=== PATIENT | female | born 1945 | race Hispanic/Latino ===

== ENCOUNTER 2017-06-20 09:02 | Day surgery (SDC) | payer MEDICARE ==
--- NOTE | 2017-06-18 07:56 | HP ---
HISTORY OF PRESENT ILLNESS: Kianna Mejía is a 71-year-old female recently moved to this area to [place], [place]. She has been having symptomatic gallbladder problems. She had a previous ultrasound r evealing gallstones, [facility] on 05/27/2017, bile duct was normal caliber. There was some janeth dence of steatosis, otherwise ultrasound was normal. The patient being recently diagnosed with predi abetic, being treated with diet alteration and exercise, and avoiding medications today. ALLERGIES: None. TOBACCO: None. ALCOHOL: None. MEDICATIONS: Losartan potassium 25 mg daily, pravastatin 20 mg a day. PAST SURGICAL HISTORY: 1. Two lumbar surgeries as a child and teenager, overall doing well with some chronic back pain. 2. Has had a previous colonoscopy. 3. Appendectomy in the past. 4. in the past. PAST MEDICAL HISTORY: Prediabetes, hypertension, chronic back pain, mild. REVIEW OF SYSTEMS: Ten-point noncontributory. No history of cardiac problems. PHYSICAL EXAMINATION: VITAL SIGNS: Weight 69.4, height 71 inches, BMI of 23, blood pressure 144/59, pulse 71, temperature 98.1 degrees. HEAD, EYES, EARS, NOSE AND THROAT: Unremarkable. Sclerae nonicteric. LUNGS: Clear to auscultation. CARDIAC: Regular rate and rhythm without murmur or gallop. ABDOMEN: Soft, nontender except for minimal tenderness in right upper quadrant, mild guarding. EXTREMITIES: Unremarkable. No edema. NEUROLOGIC: No focal deficits. ASSESSMENT AND PLAN: 1. Cholecystitis, cholelithiasis. Recommend laparoscopic video cholecystectomy. Risks of infection , bleeding, visceral and biliary injury, possibly open procedure discussed. Questions answered. We will plan laparoscopic cholecystectomy later this week. 2. Prediabetes. Diet alteration and exercise. 3. Hypertension.
[2017-06-19 14:04] VITALS: BMI 31.7
[2017-06-20] MEDS ORDERED: Ketorolac Tromethamine 30 MG/ML VIAL ONE (09:42)
[2017-06-20] MEDS ORDERED: CEFAZOLIN/Water 2 GM/20 ML SYRINGE ONE (09:42)
[2017-06-20] MEDS ORDERED: Fentanyl 100 MCG/2 ML VIAL ONE ×2 (10:08→12:39)
[2017-06-20] MEDS ORDERED: Bupivacaine/Epinephrine 0.25% 30 ML VIAL ONE (10:09)
[2017-06-20 10:11] LABS: #Basophils 0.1 thou/uL (0.0-0.2); #Eosinphils 0.4 thou/uL (0.0-0.7); #Monocytes 0.6 thou/uL (0.11-0.59); #Neutrophils 3.9 thou/uL (1.40-6.50); %Basophils 0.6 % (0.0-1.0); %Eosinophils 4.3 % (0.0-10.0); %Lymphocytes 45.2 % (21.0-51.0); %Monocytes 6.3 % (0.0-10.0); Hematocrit 46.8 % (36.0-47.0); Mean Platelet Volume 9.8 fL (7.4-10.4); Red Blood Cell (RBC) Count 4.81 mill/uL (4.20-5.40); White Blood Cell (WBC) Count 8.9 thou/uL (4.8-10.8)
[2017-06-20] MEDS ORDERED: Scopolamine 1.5 mg/72 hour Patch ONE (10:30)
[2017-06-20 10:33] LABS: ALT (SGPT) 44 U/L (8-55); AST (SGOT) 41 U/L (5-34); Alkaline Phosphatase 90 U/L (40-150); Anion Gap 12 mmol/L (10-20); BUN (Urea Nitrogen) 12 mg/dL (9.8-20.1); Bilirubin, Total 0.9 mg/dL (0.2-1.2); Calc. Creatinine Clearance 85 mL/min (70-130); Calcium 9.6 mg/dL (7.8-10.44); Carbon Dioxide 25 mmol/L (23-31); Chloride 106 mmol/L (98-107); Estimated GFR-MDRD 79; Globulin 3.8 g/dL (2.4-3.5)
[2017-06-20] MEDS ORDERED: Sodium Chloride For Inhalation 0.9% 3 ML NEB ONE (11:47)
[2017-06-20] MEDS ORDERED: Albuterol Sulfate 1.25 MG/3 ML NEB ONE (11:47)
--- NOTE | 2017-06-20 12:16 | OP ---
DATE OF PROCEDURE: 06/20/2017 PREOPERATIVE DIAGNOSES: Chronic cholecystitis, cholelithiasis. POSTOPERATIVE DIAGNOSES: Chronic cholecystitis, cholelithiasis with abnormal firm appearing liver, p ossibly early cirrhosis. PROCEDURES: Laparoscopic video cholecystectomy. Laparoscopically guided core liver biopsies, right lobe. SURGEON: Rlaph Skinner M.D. ANESTHESIA: General. Local 0.25% Marcaine with epinephrine, 30 mL, mixed with Xylocaine, 10 mL. PROCEDURE IN DETAIL: The patient was taken to the operating room where under general anesthesia, abd omen was prepared with ChloraPrep and draped in routine fashion. Local anesthetic infiltrated into s kin and subcutaneous tissue about each port site. Supraumbilical incision made and pneumoperitoneum to 15 mmHg obtained with Veress needle, replacing it with a 5 port and laparoscope inserted. Right s ubxiphoid incision made and 11 port placed. Right subcostal incision made midclavicular anterior axi llary lines and 5 mm ports placed. Liver appeared to be firm and perhaps early cirrhotic and slightl y nodular. Photographs were taken and copies given to the patient. The gallbladder fundus was grasp ed and reflected cephalad. Infundibulum grasped and reflected laterally. Cystic artery and duct dis sected free for critical view, and cystic artery and duct doubly clipped proximally, divided, as gall bladder dissected free from the liver bed obtaining good hemostasis prior to division of final perito earle attachments. Gallbladder and contents removed and submitted to Pathology. Good hemostasis ensu red with the cautery. Core liver biopsies obtained from the right lobe of the liver percutaneously a ccessed. Two good liver cores obtained. Hemostasis gained with the cautery. These were submitted t o Pathology. Good hemostasis noted. Irrigant and pneumoperitoneum evacuated. All instruments remov ed and all skin incisions approximated with interrupted subdermal 4-0 Monocryl and DermaGlue applied.
--- NOTE | 2017-06-20 12:24 | EKG ---
Test Reason : PREOP Blood Pressure : / mmHG Vent. Rate : 059 BPM Atrial Rate : 059 BPM P-R Int : 166 ms QRS Dur : 078 ms QT Int : 438 ms P-R-T Axes : 051 006 060 degrees QTc Int : 433 ms Sinus bradycardia Nonspecific T wave abnormality Abnormal ECG No previous ECGs available Confirmed by JULIO CESAR ALCANTAR ([id number]) on 06/20/2017 12:24:43 PM Referred By: LIAN Confirmed By:JULIO CESAR ALCANTAR
[2017-06-20] MEDS ORDERED: Midazolam HCl 2 mg/2 ml Vial ONE (12:25)
[2017-06-20 12:31] LABS: ALT (SGPT) 44 U/L (8-55); AST (SGOT) 41 U/L (5-34); Alkaline Phosphatase 89 U/L (40-150); Bilirubin, Direct 0.4 mg/dL (0.1-0.3); Bilirubin, Total 0.9 mg/dL (0.2-1.2); Protein, Total 8.1 g/dL (6.0-8.3)
[2017-06-20] MEDS ORDERED: HYDROcodone/Acetaminophen 5/325 mg Tablet ONE (13:32)
[2017-06-20] MEDS ORDERED: Glycopyrrolate 0.2 MG/ML 5 ML SYRINGE ONE (15:54)
[2017-06-20] MEDS ORDERED: Ondansetron HCl/PF 4 MG/2 ML Vial ONE (15:54)
[2017-06-20] MEDS ORDERED: Dexamethasone 20 MG/5 ML VIAL ONE (15:54)
[2017-06-20] MEDS ORDERED: Propofol 200 MG/20 ML VIAL ONE (15:54)
[2017-06-20] MEDS ORDERED: Lidocaine 1% PF 5 ML VIAL ONE (15:54)
== END 2017-06-20 14:45 | disposition home or self-care (01) ==
LOC: SDC 09:02
PROVIDERS: ATTEND Specialist
PROC: 0FT44ZZ Resection of Gallbladder, Percutaneous Endoscopic Approach (ICD-10-PCS; principal; 2017-06-20)
PROC: 0FB14ZX Excision of Right Lobe Liver, Percutaneous Endoscopic Approach, Diagnostic (ICD-10-PCS; 2017-06-20)
DX: K80.10 Calculus of gallbladder with chronic cholecystitis without obstruction (principal); K75.81 Nonalcoholic steatohepatitis (NASH); R73.03 Prediabetes; I10 Essential (primary) hypertension; Z90.49 Acquired absence of other specified parts of digestive tract; Z98.890 Other specified postprocedural states
CPT/HCPCS: 36415; 80053; 85025; 88304; 88307; 88313; 93005; 93010; 96374; J0131; J1100; J1885; J2001; J2250; J2405; J2704; J3010

== ENCOUNTER 2019-06-01 15:01 | Outpatient (CLI) | payer MEDICARE ==
--- NOTE | 2019-06-01 17:07 | BD ---
Exam: DEXA Bone Density 05/31/19 HISTORY: Screening study, postmenopausal female. Lumbar Spine: BMD (g/cm2) T-SCORE Z-SCORE L1 1.112 1.1 3.2 L2 1.098 0.6 2.9 L3 0.966 -1.1 1.3 L4 0.982 -0.7 1.8 L1-L4 1.041 -0.1 2.3 Femoral Neck: 0.694 -1.4 0.5 Total Femur: 0.885 -0.5 1.1 Impression: Lumbar spine: WHO classification: Normal. Fracture risk not increased. Note: There is hypertrophic changes which may falsely increase the patient's bone mineral density and subsequently falsely decrease patient's fracture risk. Femoral neck: WHO classification: Osteopenia. Ten year fracture risk for major osteoporotic fracture is 14%. Hip fracture 2.5%. POS: OFF
--- NOTE | 2019-06-18 16:35 | MMO ---
Bilateral MAMMO Bilat Screen [facility]. CLINICAL HISTORY: Patient is 73 years old and is seen for screening. The patient has no family history of breast cancer. The patient has no personal history of cancer. VIEWS: The views performed were: bilateral craniocaudal with tomosynthesis and bilateral mediolateral oblique with tomosynthesis. FILMS COMPARED: The present examination has been compared to a prior imaging study performed at [facility] on 12/24/2016. This study has been interpreted with the assistance of computer-aided detection. MAMMOGRAM FINDINGS: There are scattered fibroglandular densities. There are stable benign appearing calcifications seen in both breasts. There are no suspicious masses, suspicious calcifications, or new areas of architectural distortion. IMPRESSION: THERE IS NO MAMMOGRAPHIC EVIDENCE OF MALIGNANCY. A ROUTINE FOLLOW-UP MAMMOGRAM IN 1 YEAR IS RECOMMENDED. THE RESULTS OF THIS EXAM WERE SENT TO THE PATIENT. ACR BI-RADS Category 2 - Benign finding MAMMOGRAPHY NOTE: 1. A negative mammogram report should not delay a biopsy if a dominant of clinically suspicious mass is present. 2. Approximately 10% to 15% of breast cancers are not detected by mammography. 3. Adenosis and dense breasts may obscure an underlying neoplasm. Reported by: APRIL PENA MD Electonically Signed: [id number]
== END 2019-06-01 15:02 | disposition home or self-care (01) ==
LOC: BICMAMMO 15:01
PROVIDERS: ATTEND Family Medicine
DX: Z12.31 Encounter for screening mammogram for malignant neoplasm of breast (principal); Z13.820 Encounter for screening for osteoporosis; Z78.0 Asymptomatic menopausal state; M85.859 Other specified disorders of bone density and structure, unspecified thigh
CPT/HCPCS: 77063; 77067; 77080

== ENCOUNTER 2019-09-18 12:59 | Emergency (ER) | payer MEDICARE ==
[2019-09-18] MEDS ORDERED: Ketorolac Tromethamine 60 MG/2 ML VIAL ONE (13:56)
--- NOTE | 2019-09-18 14:00 | RAD ---
EXAM: XR Shoulder Lt 3 View STANDARD PROVIDED CLINICAL HISTORY: Pain FINDINGS: There is no evidence for fracture or other acute osseous abnormality. Alignment appears anatomic. Acr omioclavicular joint degenerative changes are seen. IMPRESSION: No evidence for an acute osseous abnormality. If there is persistent clinical concern, conservative m anagement and follow-up imaging advised.
== END 2019-09-18 14:48 | disposition home or self-care (01) ==
LOC: ERS 12:59
DX: S49.92XA Unspecified injury of left shoulder and upper arm, initial encounter (principal); I10 Essential (primary) hypertension; M06.9 Rheumatoid arthritis, unspecified; Z79.899 Other long term (current) drug therapy; W18.09XA Striking against other object with subsequent fall, initial encounter
CPT/HCPCS: 96372; J1885

== ENCOUNTER 2021-07-09 08:40 | Outpatient (CLI) | payer MEDICARE ==
[2021-07-09 10:20] LABS: Estimated GFR-MDRD - POC Greater than 90
== END 2021-07-09 08:41 | disposition home or self-care (01) ==
LOC: MRI 08:40
PROVIDERS: ATTEND Student in an Organized Health Care Education/Training Program
DX: H90.5 Unspecified sensorineural hearing loss (principal)
CPT/HCPCS: 70553; 82565

== ENCOUNTER 2023-08-07 12:37 | Outpatient (CLI) | payer MEDICARE, OTHER | END 2023-08-07 12:38 | disposition home or self-care (01) | LOC: BICRAD 12:37 | PROVIDERS: ATTEND Nurse Practitioner Family | DX: S99.921A Unspecified injury of right foot, initial encounter (principal); S92.411A Displaced fracture of proximal phalanx of right great toe, initial encounter for closed fracture ==

== ENCOUNTER 2023-09-01 08:31 | Outpatient (CLI) | payer OTHER | END 2023-09-01 08:32 | disposition home or self-care (01) | LOC: BICMAMMO 08:31 | PROVIDERS: ATTEND Family Medicine | DX: Z12.31 Encounter for screening mammogram for malignant neoplasm of breast (principal) | CPT/HCPCS: 77063; 77067 ==

== ENCOUNTER 2024-03-03 09:04 | Outpatient (CLI) | payer OTHER | END 2024-03-03 09:05 | disposition home or self-care (01) | LOC: BICMAMMO 09:04 | PROVIDERS: ATTEND Family Medicine | DX: Z13.820 Encounter for screening for osteoporosis (principal); M85.89 Other specified disorders of bone density and structure, multiple sites | CPT/HCPCS: 77080 ==